=== PATIENT | female | born 1980 | race Two or more races ===

== ENCOUNTER 2021-12-29 01:57 | Inpatient (IN) ==
[2021-12-29 03:27] LABS: Hematocrit 35 % (35-47); Mean Corpuscular HGB Conc 32 g/dL (31-36); Mean Corpuscular Hemoglobin 24 pg (27-31); Mean Corpuscular Volume 74 fL (80-97); Mean Platelet Volume 7.6 fL (7.4-10.4); Platelet Count 265 10^3/uL (150-450); Red Blood Count 4.64 10^6 /uL (3.70-4.87); Red Cell Distribution Width 18 % (10-15); White Blood Count 5.5 10^3/uL (3.5-10.8)
[2021-12-29 03:39] LABS: ALT 17 U/L (7-52); AST 19 U/L (13-39); Acetaminophen < 15 mcg/mL; Albumin 4.4 g/dL (3.2-5.2); Albumin/Globulin Ratio 1.7 (1-3); Alcohol, S < 13 mg/dL (<13); Alkaline Phosphatase 59 U/L (35-149); Anion Gap 8 mmol/L (2-11); Blood Urea Nitrogen 18 mg/dL (6-24); CO2 Carbon Dioxide 23 mmol/L (22-32); Calcium 9.2 mg/dL (8.6-10.3); Chloride 107 mmol/L (101-111); Globulin 2.6 g/dL (2-4); Glucose 99 mg/dL (70-100); Potassium 3.3 mmol/L (3.5-5.0); Salicylate < 2.50 mg/dL (<30); Sodium 138 mmol/L (135-145); eGFR CKD-EPI 99.6 (>60)
[2021-12-29 03:54] LABS: TSH Ultra Thyroid Stim Horm 1.75 mcIU/mL (0.34-5.60)
[2021-12-29 03:56] LABS: ABS Lymphocytes 0.6 10^3/ul (1.0-4.8); ABS Monocytes 0.6 10^3/ul (0-0.8); ABS Neutrophils 4.3 10^3/ul (1.5-7.7); Eosinophil % 0.5 %; Lymphocyte % 10.2 %
[2021-12-29 03:57] LABS: Anisocytosis 1+; Microcytosis 2+
[2021-12-29 05:00] LABS: Urine Appearance Cloudy; Urine Bilirubin Negative (Negative); Urine Blood Negative (Negative); Urine Color Yellow; Urine Glucose Negative (Negative); Urine Ketones 1+ (Negative); Urine Nitrite Positive (Negative); Urine Protein 1+(30 mg/dL) (Negative); Urine Specific Gravity 1.023 (1.002-1.030); Urine Urobilinogen Negative (Negative)
[2021-12-29 05:02] LABS: Urine Bacteria 1+ (Absent); Urine Red Blood Cell 1+(3-5/hpf) (Absent); Urine Squamous Epithelial Cell Present (Absent); Urine White Blood Cell 2+(11-20/hpf) (Absent)
[2021-12-29 05:31] LABS: Urine Benzodiazepine Screen None Detected (None Detect); Urine Cannabinoids Screen Presumptive Positive (None Detect); Urine Opiates Screen None Detected (None Detect)
[2021-12-29] MEDS ORDERED: Al Hydrox/Mg Hydrox/Simet LIQ 30 ML UDC PO PRN (10:36)
[2021-12-29 12:17] LABS: HIV 4th Generation Nonreactive (Nonreactive)
[2021-12-29] MEDS: Sulfamethox/Trimethoprim DS TAB 800/160 mg PO SCH (22:09)
[2021-12-30] MEDS: Fluticasone NASAL SPRAY 50MCG 16 gm SPRAY BTL BOTH NARES SCH (07:12)
[2021-12-30] MEDS: Sulfamethox/Trimethoprim DS TAB 800/160 mg PO SCH ×2 (07:12→19:26)
[2021-12-30] MEDS ORDERED: Potassium Chlor 20 meq TAB.ER PO ONE (19:05)
[2021-12-31] MEDS: Potassium Chlor 20 meq TAB.ER PO SCH (08:55)
[2021-12-31] MEDS: Sulfamethox/Trimethoprim DS TAB 800/160 mg PO SCH ×2 (08:55→22:09)
[2021-12-31] MEDS: Fluticasone NASAL SPRAY 50MCG 16 gm SPRAY BTL BOTH NARES SCH (08:56)
[2021-12-31] MEDS ORDERED: OLANZapine 5 mg TAB *ODT PO PRN (11:19)
[2022-01-01 08:31] LABS: % Iron Saturation 5 % (15-55); Anion Gap 8 mmol/L (2-11); Blood Urea Nitrogen 9 mg/dL (6-24); CO2 Carbon Dioxide 25 mmol/L (22-32); Calcium 9.5 mg/dL (8.6-10.3); Chloride 104 mmol/L (101-111); Cholesterol 163 mg/dL; Glucose 79 mg/dL (70-100); HDL Cholesterol 54.8 mg/dL; Iron 21 ug/dL (50-212); LDL Cholesterol 96 mg/dL; Magnesium 2.1 mg/dL (1.9-2.7); Potassium 4.5 mmol/L (3.5-5.0); Sodium 137 mmol/L (135-145); Total Iron Binding Capacity 441 mcg/dL (250-450); Transferrin 315 mg/dL (203-362); Triglycerides 61 mg/dL; Unsaturated Iron Binding 420 ug/dL; eGFR CKD-EPI 78.2 (>60)
[2022-01-01 08:37] LABS: HCG Pregnancy < 0.60 mIU/mL
[2022-01-01 08:51] LABS: Ferritin 5.2 ng/mL (11-307)
[2022-01-01] MEDS: Sulfamethox/Trimethoprim DS TAB 800/160 mg PO SCH (09:24)
[2022-01-01] MEDS: Potassium Chlor 20 meq TAB.ER PO SCH (09:25)
[2022-01-01] MEDS: Fluticasone NASAL SPRAY 50MCG 16 gm SPRAY BTL BOTH NARES SCH (09:26)
[2022-01-02] MEDS: Fluticasone NASAL SPRAY 50MCG 16 gm SPRAY BTL BOTH NARES SCH (09:02)
[2022-01-02] MEDS: Potassium Chlor 20 meq TAB.ER PO SCH (09:17)
[2022-01-03] MEDS: Fluticasone NASAL SPRAY 50MCG 16 gm SPRAY BTL BOTH NARES SCH (09:06)
[2022-01-03] MEDS: Potassium Chlor 20 meq TAB.ER PO SCH (09:08)
[2022-01-04 07:18] LABS: Hematocrit 38 % (35-47); Hemoglobin 12.3 g/dL (12.0-16.0); Mean Corpuscular HGB Conc 32 g/dL (31-36); Mean Corpuscular Hemoglobin 24 pg (27-31); Mean Corpuscular Volume 75 fL (80-97); Red Blood Count 5.07 10^6 /uL (3.70-4.87); Red Cell Distribution Width 18 % (10-15); White Blood Count 4.8 10^3/uL (3.5-10.8)
[2022-01-04 07:43] LABS: Blood Urea Nitrogen 14 mg/dL (6-24); CO2 Carbon Dioxide 25 mmol/L (22-32); Calcium 9.5 mg/dL (8.6-10.3); Chloride 104 mmol/L (101-111); Glucose 84 mg/dL (70-100); Sodium 135 mmol/L (135-145); eGFR CKD-EPI 95.1 (>60)
[2022-01-04 08:02] LABS: Anion Gap 6 mmol/L (2-11)
[2022-01-04 08:04] LABS: ABS Eosinophils 0.1 10^3/ul (0-0.6); ABS Lymphocytes 1.4 10^3/ul (1.0-4.8); ABS Monocytes 0.5 10^3/ul (0-0.8); ABS Neutrophils 2.8 10^3/ul (1.5-7.7); Eosinophil % 1.7 %; Lymphocyte % 28.5 %; Mean Platelet Volume 8.4 fL (7.4-10.4); Platelet Count 263 10^3/uL (150-450)
[2022-01-04] MEDS: Potassium Chlor 20 meq TAB.ER PO SCH (08:41)
[2022-01-04] MEDS: Fluticasone NASAL SPRAY 50MCG 16 gm SPRAY BTL BOTH NARES SCH (08:43)
[2022-01-05] MEDS: Fluticasone NASAL SPRAY 50MCG 16 gm SPRAY BTL BOTH NARES SCH (09:06)
[2022-01-05] MEDS: Potassium Chlor 20 meq TAB.ER PO SCH (09:07)
[2022-01-05 17:45] LABS: Renin <0.6 ng/mL/h
[2022-01-06] MEDS: Potassium Chlor 20 meq TAB.ER PO SCH (09:39)
[2022-01-06] MEDS: Fluticasone NASAL SPRAY 50MCG 16 gm SPRAY BTL BOTH NARES SCH (09:39)
[2022-01-06 19:53] LABS: Calcium 9.9 mg/dL (8.6-10.3); Potassium 3.8 mmol/L (3.5-5.0)
[2022-01-06 19:58] LABS: eGFR CKD-EPI 78.2 (>60)
[2022-01-07] MEDS: Potassium Chlor 20 meq TAB.ER PO SCH (08:57)
[2022-01-07] MEDS: Fluticasone NASAL SPRAY 50MCG 16 gm SPRAY BTL BOTH NARES SCH (08:59)
[2022-01-08] MEDS: Fluticasone NASAL SPRAY 50MCG 16 gm SPRAY BTL BOTH NARES SCH (09:31)
[2022-01-08] MEDS: Potassium Chlor 20 meq TAB.ER PO SCH (09:54)
[2022-01-08 10:14] VITALS: BP 158/106
== END 2022-01-08 14:45 | disposition home or self-care (01) | DRG 753 ==
LOC: ED 01:57 → BSU 12:13
PROVIDERS: ADMIT Psychiatry & Neurology Psychiatry; ATTEND Student in an Organized Health Care Education/Training Program